=== PATIENT | male | born 1980 | race Caucasian/White ===

== ENCOUNTER 2024-10-09 21:31 | Emergency (ER) | payer SELFPAY ==
[2024-10-09] MEDS ORDERED: Lactated Ringers 1,000 ML IV SCH (22:00)
[2024-10-09 22:05] LABS: BASOPHILS PERCENT AUTO 0.6 % (0.0-1.0); EOSINOPHILS PERCENT AUTO 1.4 % (1.0-3.0); HEMATOCRIT 44.1 % (40.0-54.0); HEMOGLOBIN 15.4 g/dL (14.0-18.0); LYMPHOCYTES PERCENT AUTO 30.4 % (20.5-50.1); MEAN CORPUSCULAR HEMOGLOBIN 30.9 pg (27.0-34.0); MEAN CORPUSCULAR HGB CONC 34.9 g/dL (33.0-35.0); MEAN CORPUSCULAR VOLUME 88.4 fL (80-100); MONOCYTES PERCENT AUTO 9.6 % (2-8); PLATELET COUNT,PLT 227 10^3/uL (150-450); RED BLOOD CELL COUNT 4.99 10^6/uL (4.6-6.2); WHITE BLOOD CELL COUNT,WBC 7.9 10^3/uL (5.0-10.0)
[2024-10-09 22:17] LABS: APPEARANCE,URINE CLEAR (CLEAR); BILIRUBIN,URINE MODERATE (NEGATIVE); COLOR,URINE YELLOW (YELLOW); GLUCOSE,URINE NEGATIVE (NEGATIVE); KETONES,URINE >=160 (NEGATIVE); LEUKOCYTE ESTERASE,URINE NEGATIVE (NEGATIVE); NITRITE,URINE NEGATIVE (NEGATIVE); OCCULT BLOOD,URINE NEGATIVE (NEGATIVE); PROTEIN,URINE >=300 (NEGATIVE); UROBILINOGEN,URINE 0.2 mg/dL (0.2-1.0)
[2024-10-09 22:26] LABS: A/G RATIO 1.2; ALANINE AMINOTRANSFERASE,ALT 40 U/L (16-63); ALBUMIN 4.6 g/dL (3.4-5.0); ALKALINE PHOSPHATASE 91 U/L (46-116); ASPARTATE AMNIOTRANSFERASE,AST 35 U/L (15-37); BILIRUBIN TOTAL 1.1 mg/dL (0.2-1.0); BLOOD UREA NITROGEN,BUN 13 mg/dL (7-18); BUN/CREATININE RATIO 12.6 (No establ ref range); CALCIUM 10.3 mg/dL (8.5-10.1); CARBON DIOXIDE,CO2 25 mmol/L (21-32); CHLORIDE,CL 99 mmol/L (98-107); CREATININE 1.03 mg/dL (0.70-1.30); GLUCOSE RANDOM 106 mg/dL (70-99); LIPASE 62 U/L (16-77); MAGNESIUM 1.5 mg/dL (1.8-2.4); PROTEIN TOTAL,TP 8.4 g/dL (6.4-8.2); SODIUM,NA 139 mmol/L (136-145)
[2024-10-09 22:26] LABS: AMPHETAMINES,URINE NEGATIVE (NEGATIVE); BARBITURATES,URINE NEGATIVE (NEGATIVE); BENZODIAZEPINE,URINE NEGATIVE (NEGATIVE); MDMA (ECSTASY), URINE NEGATIVE (NEGATIVE); METHADONE,URINE NEGATIVE (NEGATIVE); METHAMPHETAMINES,URINE NEGATIVE (NEGATIVE); OPIATES,URINE NEGATIVE (NEGATIVE); OXYCODONE,URINE NEGATIVE (NEGATIVE); PHENCYCLIDINE,URINE NEGATIVE (NEGATIVE); TCA,URINE NEGATIVE (NEGATIVE)
[2024-10-09 22:30] LABS: ESTIMATED GFR 94 mL/min (>=60); ETHANOL BLOOD MEDICAL < 3 mg/dL (0)
[2024-10-09 22:32] LABS: EPITHELIAL CELLS,URINE RARE /HPF (NOT SEEN); RBC,URINE 0-5 /HPF (0-5); WBC,URINE 0-5 /HPF (0-5/HPF)
[2024-10-09 22:33] LABS: AMORPHOUS SEDIMENT,URINE MODERATE /HPF (NOT SEEN); BACTERIA,URINE FEW /HPF (0-FEW/HPF); MUCUS,URINE MANY /LPF (NOT SEEN)
[2024-10-09] MEDS: Ondansetron 4 MG/2 ML SDV IVPUSH ONE (22:46)
[2024-10-09] MEDS: MVI, Adult with Vitamin K 10 ML, Folic Acid 1 MG, Thiamine 100 MG in Lactated Ringers 1... IV ONE (22:47)
[2024-10-09] MEDS: Magnesium Sulf/Wat 2 GM/50 mL 2 GM in Premix Bag 1 BAG IV ONE (22:47)
[2024-10-10] MEDS: Acetaminophen 325 MG Tab PO ONE (00:41)
== END 2024-10-10 01:00 | disposition home or self-care (01) ==
LOC: DL.ED 21:31
DX: F41.9 Anxiety disorder, unspecified (principal); F10.10 Alcohol abuse, uncomplicated; F12.10 Cannabis abuse, uncomplicated; E86.0 Dehydration; E83.42 Hypomagnesemia; Y90.0 Blood alcohol level of less than 20 mg/100 ml
CPT/HCPCS: 36415; 70450; 71045; 80053; 80305; 80307; 81001; 83690; 83735; 84443; 84484; 85025; 85379; 93005; 96365; 96366; 96368; 96375; 99285; A9270; J2405; J3411; J3475; J7120; 93010; 99284; J3490

== ENCOUNTER 2024-12-18 10:57 | Inpatient (IN) | payer BC ==
[2024-12-18] MEDS ORDERED: Acetaminophen 325 MG Tab PO PRN (17:31)
[2024-12-18] MEDS ORDERED: Flumazenil 0.1 MG/ML 5 ML MDV IVPUSH PRN (17:39)
[2024-12-18] MEDS ORDERED: Sodium Chloride 0.9% 1,000 ML IV SCH (17:45)
[2024-12-18 18:05] LABS: BASOPHILS PERCENT AUTO 2.2 % (0.0-1.0); EOSINOPHILS PERCENT AUTO 2.9 % (1.0-3.0); HEMATOCRIT 40.4 % (40.0-54.0); HEMOGLOBIN 13.8 g/dL (14.0-18.0); LYMPHOCYTES PERCENT AUTO 35.7 % (20.5-50.1); MEAN CORPUSCULAR HEMOGLOBIN 31.9 pg (27.0-34.0); MEAN CORPUSCULAR HGB CONC 34.2 g/dL (33.0-35.0); MEAN CORPUSCULAR VOLUME 93.3 fL (80-100); MONOCYTES PERCENT AUTO 8.1 % (2-8); NEUTROPHILS PERCENT AUTO 51.1 % (42.2-75.2); PLATELET COUNT,PLT 196 10^3/uL (150-450); RED BLOOD CELL COUNT 4.33 10^6/uL (4.6-6.2); WHITE BLOOD CELL COUNT,WBC 5.6 10^3/uL (5.0-10.0)
[2024-12-18] MEDS: chlordiazePOXIDE 25 MG Cap PO SCH (18:23)
[2024-12-18] MEDS: GI Cocktail Oral Solution 30 ML PO ONE (18:23)
[2024-12-18] MEDS: LORazepam 2 MG/ML SDV IVPUSH PRN (18:24)
[2024-12-18 18:37] LABS: PROTHROMBIN TIME 10.3 SEC (9.0-12.0)
[2024-12-18 18:39] LABS: A/G RATIO 1.1; ALBUMIN 4.1 g/dL (3.4-5.0); ANION GAP 17.7 mEq/L (7-13); BILIRUBIN DIRECT 0.2 mg/dL (0.0-0.2); BILIRUBIN INDIRECT 0.4; BILIRUBIN TOTAL 0.6 mg/dL (0.2-1.0); CALCIUM 8.7 mg/dL (8.5-10.1); CREATININE 0.78 mg/dL (0.70-1.30); EST CRCL DRUG DOSING (CG) 135.41 mL/min; MAGNESIUM 1.8 mg/dL (1.8-2.4); PHOSPHORUS 3.4 mg/dL (2.6-4.7); POTASSIUM,K 3.7 mmol/L (3.5-5.1); PROTEIN TOTAL,TP 7.8 g/dL (6.4-8.2)
[2024-12-18] MEDS ORDERED: Sodium Chloride 0.9% 1,000 ML IV ONE (19:00)
[2024-12-18] MEDS: Sodium Chloride 0.9% 1,000 ML IV SCH (19:03)
[2024-12-18] MEDS: Pantoprazole 40 MG Vial IVPUSH SCH (19:26)
[2024-12-18] MEDS: MVI, Adult with Vitamin K 10 ML, Folic Acid 1 MG, Thiamine 100 MG in Lactated Ringers 1... IV ONE (19:54)
[2024-12-18] MEDS: Dextrose 5%-0.45% NaCl 1,000 ML IV SCH (21:07)
[2024-12-18 21:57] LABS: APPEARANCE,URINE CLEAR (CLEAR); BILIRUBIN,URINE NEGATIVE (NEGATIVE); COLOR,URINE YELLOW (YELLOW); GLUCOSE,URINE NEGATIVE (NEGATIVE); KETONES,URINE 15 (NEGATIVE); LEUKOCYTE ESTERASE,URINE NEGATIVE (NEGATIVE); NITRITE,URINE NEGATIVE (NEGATIVE); OCCULT BLOOD,URINE NEGATIVE (NEGATIVE); PROTEIN,URINE 30 (NEGATIVE); UROBILINOGEN,URINE 0.2 mg/dL (0.2-1.0)
[2024-12-18 23:52] LABS: BACTERIA,URINE FEW /HPF (0-FEW/HPF); EPITHELIAL CELLS,URINE RARE /HPF (NOT SEEN); MUCUS,URINE FEW /LPF (NOT SEEN); RBC,URINE 0-5 /HPF (0-5); WBC,URINE 0-5 /HPF (0-5/HPF)
[2024-12-19] MEDS: Propranolol 10 MG Tab PO SCH (00:51)
[2024-12-19] MEDS: Heparin Sodium 5,000 Units/ML Vial SUBCUT SCH (00:52)
[2024-12-19] MEDS: Thiamine 100 MG Tab PO SCH (09:04)
[2024-12-19] MEDS: Folic Acid 1 MG Tab PO SCH (09:04)
[2024-12-19] MEDS: GI Cocktail Oral Solution 30 ML PO ONE (09:13)
[2024-12-19 09:19] LABS: AMPHETAMINES,URINE POSITIVE (NEGATIVE); BARBITURATES,URINE POSITIVE (NEGATIVE); BENZODIAZEPINE,URINE POSITIVE (NEGATIVE); MDMA (ECSTASY), URINE NEGATIVE (NEGATIVE); METHADONE,URINE NEGATIVE (NEGATIVE); METHAMPHETAMINES,URINE NEGATIVE (NEGATIVE); OPIATES,URINE NEGATIVE (NEGATIVE); OXYCODONE,URINE POSITIVE (NEGATIVE); PHENCYCLIDINE,URINE NEGATIVE (NEGATIVE); TCA,URINE NEGATIVE (NEGATIVE)
[2024-12-19] MEDS: Folic Acid 1 MG in Sodium Chloride 0.9% 50 ML IV ONE (12:25)
[2024-12-19] MEDS: Ampicillin/Sulbactam Na 3 GM in Sodium Chloride 0.9% 100 ML IV SCH (12:26)
[2024-12-19] MEDS: Cyanocobalamin (Vitamin B12) 1,000 MCG/ML SDV IM ONE ×2 (12:27→12:34)
[2024-12-19] MEDS: Sucralfate Suspension 1 GM/10 ML Cup PO SCH (12:27)
[2024-12-19] MEDS: Acetaminophen 325 MG Tab PO SCH (12:35)
[2024-12-19] MEDS: Magnesium Oxide 400 MG Tab PO SCH (18:33)
[2024-12-20 06:32] LABS: EOSINOPHILS PERCENT AUTO 4.1 % (1.0-3.0); HEMATOCRIT 34.6 % (40.0-54.0); HEMOGLOBIN 11.5 g/dL (14.0-18.0); LYMPHOCYTES PERCENT AUTO 40.2 % (20.5-50.1); MEAN CORPUSCULAR HEMOGLOBIN 30.6 pg (27.0-34.0); MEAN CORPUSCULAR HGB CONC 33.2 g/dL (33.0-35.0); MONOCYTES PERCENT AUTO 10.7 % (2-8); PLATELET COUNT,PLT 140 10^3/uL (150-450); RED BLOOD CELL COUNT 3.76 10^6/uL (4.6-6.2); WHITE BLOOD CELL COUNT,WBC 3.9 10^3/uL (5.0-10.0)
[2024-12-20 06:42] LABS: ANION GAP 11.3 mEq/L (7-13); CALCIUM 8.4 mg/dL (8.5-10.1); CREATININE 0.81 mg/dL (0.70-1.30); EST CRCL DRUG DOSING (CG) 130.4 mL/min; POTASSIUM,K 3.3 mmol/L (3.5-5.1)
[2024-12-20] MEDS: Ondansetron 4 MG/2 ML SDV IVPUSH PRN (12:40)
[2024-12-20] MEDS: Potassium Chloride 20 MEQ in Premix Bag 1 BAG IV ONE (13:20)
[2024-12-21 06:15] LABS: BASOPHILS PERCENT AUTO 1.1 % (0.0-1.0); EOSINOPHILS PERCENT AUTO 3.8 % (1.0-3.0); HEMATOCRIT 35.5 % (40.0-54.0); LYMPHOCYTES PERCENT AUTO 34.1 % (20.5-50.1); MEAN CORPUSCULAR HEMOGLOBIN 31.4 pg (27.0-34.0); MEAN CORPUSCULAR HGB CONC 33.8 g/dL (33.0-35.0); MEAN CORPUSCULAR VOLUME 92.9 fL (80-100); MONOCYTES PERCENT AUTO 10.2 % (2-8); NEUTROPHILS PERCENT AUTO 50.8 % (42.2-75.2); PLATELET COUNT,PLT 143 10^3/uL (150-450); RED BLOOD CELL COUNT 3.82 10^6/uL (4.6-6.2); WHITE BLOOD CELL COUNT,WBC 4.7 10^3/uL (5.0-10.0)
[2024-12-21 06:29] LABS: ANION GAP 10.3 mEq/L (7-13); CALCIUM 8.6 mg/dL (8.5-10.1); CREATININE 0.88 mg/dL (0.70-1.30); EST CRCL DRUG DOSING (CG) 120.03 mL/min; POTASSIUM,K 3.3 mmol/L (3.5-5.1)
[2024-12-21] MEDS: Potassium Chloride 10 MEQ Tab.ER PO ONE (19:28)
[2024-12-21] MEDS: Magnesium Oxide 400 MG Tab PO ONE (19:28)
[2024-12-21] MEDS: chlordiazePOXIDE 25 MG Cap PO SCH (21:47)
[2024-12-21] MEDS: LORazepam 2 MG/ML SDV IVPUSH PRN (21:47)
[2024-12-22 06:29] LABS: BASOPHILS PERCENT AUTO 0.7 % (0.0-1.0); EOSINOPHILS PERCENT AUTO 2.5 % (1.0-3.0); HEMATOCRIT 37.4 % (40.0-54.0); HEMOGLOBIN 12.5 g/dL (14.0-18.0); LYMPHOCYTES PERCENT AUTO 33.2 % (20.5-50.1); MEAN CORPUSCULAR HEMOGLOBIN 31.2 pg (27.0-34.0); MEAN CORPUSCULAR HGB CONC 33.4 g/dL (33.0-35.0); MEAN CORPUSCULAR VOLUME 93.3 fL (80-100); MONOCYTES PERCENT AUTO 10.6 % (2-8); PLATELET COUNT,PLT 154 10^3/uL (150-450); RED BLOOD CELL COUNT 4.01 10^6/uL (4.6-6.2); WHITE BLOOD CELL COUNT,WBC 6.8 10^3/uL (5.0-10.0)
[2024-12-22 06:59] LABS: A/G RATIO 1.1; ALBUMIN 3.7 g/dL (3.4-5.0); ANION GAP 11.4 mEq/L (7-13); BILIRUBIN TOTAL 0.4 mg/dL (0.2-1.0); BUN/CREATININE RATIO 8.6 (No establ ref range); CREATININE 0.81 mg/dL (0.70-1.30); EST CRCL DRUG DOSING (CG) 130.4 mL/min; MAGNESIUM 1.8 mg/dL (1.8-2.4); POTASSIUM,K 3.4 mmol/L (3.5-5.1); PROTEIN TOTAL,TP 7.2 g/dL (6.4-8.2)
[2024-12-22] MEDS: Potassium Chloride 10 MEQ Tab.ER PO ONE (11:11)
[2024-12-22] MEDS: Docusate Sodium 100 MG Cap PO SCH (13:38)
[2024-12-22] MEDS: Polyethylene Glycol 3350 Powder 17 GM Packet PO SCH (13:39)
[2024-12-22] MEDS: Bisacodyl 5 MG Tab PO SCH (13:39)
[2024-12-22] MEDS: LORazepam 2 MG/ML SDV IVPUSH PRN (21:00)
[2024-12-22] MEDS: Sennosides/Docusate Sodium 50-8.6 MG Tab PO SCH (21:07)
[2024-12-22] MEDS: Acetaminophen 325 MG Tab PO PRN (23:35)
[2024-12-23 06:39] LABS: BASOPHILS PERCENT AUTO 0.8 % (0.0-1.0); HEMATOCRIT 37.5 % (40.0-54.0); HEMOGLOBIN 13.1 g/dL (14.0-18.0); LYMPHOCYTES PERCENT AUTO 31.6 % (20.5-50.1); MEAN CORPUSCULAR HEMOGLOBIN 32.8 pg (27.0-34.0); MEAN CORPUSCULAR HGB CONC 34.9 g/dL (33.0-35.0); MONOCYTES PERCENT AUTO 11.4 % (2-8); NEUTROPHILS PERCENT AUTO 54.2 % (42.2-75.2); PLATELET COUNT,PLT 177 10^3/uL (150-450); RED BLOOD CELL COUNT 3.99 10^6/uL (4.6-6.2); WHITE BLOOD CELL COUNT,WBC 7.5 10^3/uL (5.0-10.0)
[2024-12-23] MEDS ORDERED: LORazepam 0.5 MG Tab PO PRN (06:48)
[2024-12-23 07:08] LABS: POTASSIUM,K 3.5 mmol/L (3.5-5.1)
[2024-12-23 07:09] LABS: ALBUMIN 3.8 g/dL (3.4-5.0); ANION GAP 15.5 mEq/L (7-13); BILIRUBIN TOTAL 0.4 mg/dL (0.2-1.0); CALCIUM 9.4 mg/dL (8.5-10.1); CREATININE 0.86 mg/dL (0.70-1.30); EST CRCL DRUG DOSING (CG) 122.82 mL/min; MAGNESIUM 1.8 mg/dL (1.8-2.4); PROTEIN TOTAL,TP 7.5 g/dL (6.4-8.2)
[2024-12-23 07:12] LABS: PERCENT FE SATURATION 22.2 % (20.0-50.0)
[2024-12-23] MEDS: hydrOXYzine HCl 25 MG Tab PO SCH (09:30)
[2024-12-23] MEDS: Amoxicillin/Clavulanate K 875-125 MG Tab PO SCH (09:30)
[2024-12-23] MEDS: busPIRone 15 MG Tab PO SCH (14:14)
[2024-12-24 08:47] LABS: VITAMIN B1, WHOLE BLOOD 184 nmol/L (70-180)
== END 2024-12-23 16:15 | disposition home or self-care (01) | DRG 775 ==
LOC: DL.MS 10:57 → OBSVTOIN 12-20 10:57
PROVIDERS: ADMIT Internal Medicine; ATTEND Student in an Organized Health Care Education/Training Program
PROC: HZ2ZZZZ Detoxification Services for Substance Abuse Treatment (ICD-10-PCS; principal; 2024-12-20)
DX: F10.239 Alcohol dependence with withdrawal, unspecified (principal); F41.9 Anxiety disorder, unspecified; F32.A Depression, unspecified; F12.90 Cannabis use, unspecified, uncomplicated; E53.8 Deficiency of other specified B group vitamins; K29.20 Alcoholic gastritis without bleeding; D61.818 Other pancytopenia; E87.1 Hypo-osmolality and hyponatremia; E87.6 Hypokalemia; Z79.899 Other long term (current) drug therapy
CPT/HCPCS: 36415; 80048; 80053; 80076; 80305-QW; 80307; 81001; 82272; 82607; 82728; 82746; 83540; 83550; 83690; 83735; 84100; 84425; 85025; 85610; 94010; 96361; 96365; 96366; 96367; 96372; 96375; 96376; 99222; 99232; 99233; 99238; A9270-GY; G0378; J0295; J1644; J2060; J2405; J2470; J3411; J3420; J3480; J3490; J7030; J7120

== ENCOUNTER 2025-02-27 23:31 | Emergency (ER) | payer BC ==
[2025-02-28] MEDS: Ondansetron 4 MG/2 ML SDV IVPUSH ONE (00:10)
[2025-02-28 00:12] LABS: BASOPHILS PERCENT AUTO 1.1 % (0.0-1.0); EOSINOPHILS PERCENT AUTO 2.4 % (1.0-3.0); LYMPHOCYTES PERCENT AUTO 43.7 % (20.5-50.1); MONOCYTES PERCENT AUTO 7.5 % (2-8); NEUTROPHILS PERCENT AUTO 45.3 % (42.2-75.2); PLATELET COUNT,PLT 263 10^3/uL (150-450); RED BLOOD CELL COUNT 4.78 10^6/uL (4.6-6.2); WHITE BLOOD CELL COUNT,WBC 7.1 10^3/uL (5.0-10.0)
[2025-02-28] MEDS: LORazepam 2 MG/ML SDV IVPUSH ONE (00:13)
[2025-02-28 00:27] LABS: LACTIC ACID 3.4 mmol/L (0.4-2.0)
[2025-02-28 00:29] LABS: A/G RATIO 1.2; ALANINE AMINOTRANSFERASE,ALT 108.0 U/L (16-63); ASPARTATE AMNIOTRANSFERASE,AST 128.0 U/L (15-37); BILIRUBIN TOTAL 0.5 mg/dL (0.2-1.0); BLOOD UREA NITROGEN,BUN 7.0 mg/dL (7-18); CARBON DIOXIDE,CO2 24.0 mmol/L (21-32); CREATININE 0.76 mg/dL (0.70-1.30); EST CRCL DRUG DOSING (CG) 138.98 mL/min; GLUCOSE RANDOM 109.0 mg/dL (70-99); PROTEIN TOTAL,TP 8.1 g/dL (6.4-8.2)
[2025-02-28 00:34] LABS: ESTIMATED GFR 115.0 mL/min (>=60); SODIUM,NA 138.0 mmol/L (136-145)
[2025-02-28 00:35] LABS: CHLORIDE,CL 102.0 mmol/L (98-107); ETHANOL BLOOD MEDICAL 459.0 mg/dL (0); POTASSIUM,K 3.3 mmol/L (3.5-5.1)
[2025-02-28 00:59] LABS: APPEARANCE,URINE CLEAR (CLEAR); GLUCOSE,URINE NEGATIVE (NEGATIVE); OCCULT BLOOD,URINE TRACE-INTACT (NEGATIVE)
[2025-02-28 01:02] LABS: AMPHETAMINES,URINE NEGATIVE (NEGATIVE); BARBITURATES,URINE NEGATIVE (NEGATIVE); MDMA (ECSTASY), URINE NEGATIVE (NEGATIVE); METHAMPHETAMINES,URINE NEGATIVE (NEGATIVE); OPIATES,URINE NEGATIVE (NEGATIVE); OXYCODONE,URINE NEGATIVE (NEGATIVE); PHENCYCLIDINE,URINE NEGATIVE (NEGATIVE); TCA,URINE NEGATIVE (NEGATIVE)
[2025-02-28 01:08] LABS: EPITHELIAL CELLS,URINE RARE /HPF (NOT SEEN)
[2025-02-28] MEDS: Take Home: LORazepam 1 MG Tab, 2 Tab Pack PO ONE (02:52)
== END 2025-02-28 03:00 | disposition home or self-care (01) ==
LOC: DL.ED 23:31
DX: F10.220 Alcohol dependence with intoxication, uncomplicated (principal); Z79.899 Other long term (current) drug therapy; Z86.16 Personal history of COVID-19; Y90.9 Presence of alcohol in blood, level not specified
CPT/HCPCS: 36415; 71045; 80053; 80305; 80307; 81001; 83605; 83690; 83735; 84484; 85025; 96361; 96365; 96372; 96375; 99284; A9270; J2060; J2405; J2765; J3411; J7030; 99283